=== PATIENT | female | born 1990 | race Caucasian/White ===

== ENCOUNTER 2020-03-31 16:03 | Emergency (ER) | payer OTHER ==
[2020-03-31 16:11] VITALS: BP 104/65
--- NOTE | 2020-03-31 16:44 | ER Document Report ---
HPI - HPI Patient complains to provider of: Rash Time Seen by Provider: 03/31/20 16:32 Pain Level: 3 Context: 29-year-old female past medical history significant for anxiety, pseudotumor cerebri sitting from [place] presents to the emergency room with a rash that started on her chest that is rating to her shoulders that [place]. She denies any new medications no new foods. Has been on Lexapro and Remeron for 8 months. Pharmacist said it could cause some sun sensitivity. Was referred to the emergency room for further evaluation. She denies any shortness of breath, no difficulty breathing. She describes the rash as burning and itching. Took Benadryl without relief. No one else with rash. Denies . Associated Symptoms: None Exacerbated by: Denies Relieved by: Denies Similar symptoms previously: No Recently seen / treated by doctor: No - ROS ROS below otherwise negative: Yes - CONSTITUTIONAL Constitutional: DENIES: Fever, Chills - NEURO Neurology: DENIES: Headache - RESPIRATORY Respiratory: DENIES: Trouble Breathing, Coughing - GASTROINTESTINAL Gastrointestinal: DENIES: Nausea, Patient vomiting - REPRODUCTIVE Reproductive: DENIES: : - DERM Skin Color: Erythema Skin Problems: Rash Past Medical History - General Information source: Patient - Social History Smoking Status: Never Smoker Frequency of alcohol use: Occasional Drug Abuse: None Family History: Reviewed & Not Pertinent Patient has homicidal ideation: No Vertical Provider Document - CONSTITUTIONAL Agree With Documented VS: Yes Exam Limitations: No Limitations General Appearance: Mild Distress - INFECTION CONTROL TRAVEL OUTSIDE OF THE [place] IN LAST 30 DAYS: No - HEENT HEENT: Atraumatic, Normocephalic - NECK Neck: Normal Inspection, Supple - RESPIRATORY Respiratory: Breath Sounds Normal, No Respiratory Distress, Chest Non-Tender. negative: Rales, Rhonchi, Wheezing - CARDIOVASCULAR Cardiovascular: Regular Rate, Regular Rhythm, No Murmur - MUSCULOSKELETAL/EXTREMETIES Musculoskeletal/Extremeties: FROM, Non-Tender - NEURO Level of Consciousness: Awake, Alert, Appropriate - DERM Integumentary: Warm, Dry, Rash - Scattered erythematous rash noted across upper chest. It is nonblanching. It is not warm or tender to palpation. Center of the sternum there is a scattered erythematous vesicular rash that is also not warm or tender to palpation. Nonblanching. Course - Re-evaluation Re-evalutation: 03/31/20 16:39 Discussed diagnosis with patient. Does not appear to be a drug reaction from the sun. Counseled she can continue with Zyrtec for the itching. Will discharge home on p.o. prednisone. Patient was given strict return to the emergency room guidelines. Return for any new or worsening symptoms. All questions were answered. Patient verbalized understanding and agrees with plan of care. - Vital Signs Vital signs: Temp Pulse Resp BP Pulse Ox 98.7 F 68 14 104/65 98 03/31/20 16:33 03/31/20 16:10 03/31/20 16:10 03/31/20 16:10 03/31/20 16:10 Discharge - Discharge Clinical Impression: Rash and nonspecific skin eruption Condition: Stable Disposition: HOME, SELF-CARE Instructions: Contact Dermatitis ([facility]) Additional Instructions: Prednisone as prescribed. Benadryl as needed for itching. Return for any new or worsening symptoms. Prescriptions: Methylprednisolone [Medrol Dosepack (4 mg/Tab) 21 Tab/Dosepak] 4 mg PO ASDIR PRN #21 tab.ds.pk PRN Reason:
== END 2020-03-31 16:44 | disposition home or self-care (01) ==
LOC: ER 16:03
DX: R21 Rash and other nonspecific skin eruption (principal); F41.9 Anxiety disorder, unspecified; Z79.899 Other long term (current) drug therapy
CPT/HCPCS: 99282